=== PATIENT | male | born 1950 | race Caucasian/White ===

== ENCOUNTER 2016-08-02 09:43 | Emergency (ER) | payer BC ==
[2016-08-02 10:06] VITALS: BP 139/70
--- NOTE | 2016-08-02 10:18 | UC ---
Back Pain HPI - HPI Summary HPI Summary: right lower back pain x 10 days no known injury , no radiation of the pain - History of Current Complaint Chief Complaint: UCLowerExtremity Stated Complaint: LOWER BACK/BUTTOCK PAIN Time Seen by Provider: 08/02/16 09:55 Hx Obtained From: Patient Onset/Duration: Gradual Onset, Lasting Days - 10, Still Present Timing: Constant Severity Initially: Moderate Severity Currently: Moderate Back Pain: Is Discrete @ - right lower back Character: Aching, Spasmodic Aggravating: Movement, Bending, Walking Alleviating: Rest, Position Associated Signs And Symptoms: Negative: Swelling, Redness, Bruising, Fever, Weakness, Numbness, Tingling, Abdominal Pain, Flank Pain, Bladder Incontinence, Bowel Incontinence, Weight Loss, Pain with Weight Bearing - Allergies/Home Medications Allergies/Adverse Reactions: Allergies Allergy/AdvReac Type Severity Reaction Status Date / Time No Known Allergies Allergy Verified 08/02/16 09:52 Home Medications: Home Medications Ibuprofen TAB* [Advil TAB*] 800 mg PO Q6H PRN 08/02/16 [History Confirmed ] PMH/Surg Hx/FS Hx/Imm Hx Previously Healthy: Yes - Surgical History Surgical History: Yes Surgery Procedure, Year, and Place: [facility], HYDREOCELE, SPETMATOCELE. RIGHT SHOULDER, 2010, [facility] - Family History Known Family History: Negative: Diabetes - Social History Alcohol Use: None Substance Use Type: None Smoking Status (MU): Never Smoked Tobacco Have You Smoked in the Last Year: No Review of Systems Constitutional: Negative Skin: Negative Eyes: Negative ENT: Negative Respiratory: Negative Musculoskeletal: Other: - right lower back pian All Other Systems Reviewed And Are Negative: Yes Physical Exam Triage Information Reviewed: Yes Appearance: Well-Appearing, No Pain Distress, Well-Nourished Vital Signs: Initial Vital Signs Temp 98.8 F 08/02/16 09:55 Pulse 75 08/02/16 09:55 Resp 16 08/02/16 09:55 BP 139/70 08/02/16 09:55 Pulse Ox 98 08/02/16 09:55 Eye Exam: Normal Eyes: Positive: Conjunctiva Clear ENT: Positive: Normal ENT inspection, Hearing grossly normal, Pharynx normal Neck: Positive: Supple, Nontender, No Lymphadenopathy Respiratory: Positive: Chest non-tender, Lungs clear, Normal breath sounds Cardiovascular: Positive: RRR, No Murmur, Pulses Normal Abdominal Exam: Normal Musculoskeletal: Positive: Strength Intact, ROM Intact, No Edema, Other: - right lower back : no swelling, no tenderness, good ROM Skin Exam: Normal Back Pain Course/Dx - Differential Dx/Diagnosis Provider Diagnoses: lower back strain Discharge - Discharge Plan Condition: Stable Disposition: HOME Prescriptions: Cyclobenzaprine TAB* [Flexeril TAB*] 10 mg PO BID #20 tab Patient Education Materials: Low Back Strain (ED) Referrals: Donnie Meier MD [Primary Care Provider] - 7 Days
== END 2016-08-02 10:20 | disposition home or self-care (01) ==
LOC: UCCORT 09:43
DX: S39.012A Strain of muscle, fascia and tendon of lower back, initial encounter (principal); X58.XXXA Exposure to other specified factors, initial encounter; Y92.9 Unspecified place or not applicable
CPT/HCPCS: 99212; G0463

== ENCOUNTER 2017-05-23 11:53 | Emergency (ER) | payer BC ==
[2017-05-23 12:27] VITALS: BP 129/77
[2017-05-23] MEDS ORDERED: Ketorolac INJ* 60 MG/2 ML VIAL IM ONE (12:30)
[2017-05-23] MEDS ORDERED: Ondansetron ODT TAB* 4 MG PO ONE (12:38)
--- NOTE | 2017-05-23 13:22 | UC ---
Abdominal Pain Male HPI - HPI Summary HPI Summary: RLQ ABDOMINAL PAIN X 1 DAY THE PAIN IS SEVER, RADIATING TO HIS GROIN AREA + NAUSEA AND VOMITING - History of Current Complaint Chief Complaint: UCAbdominalPain Stated Complaint: ABDOMINAL PAIN Time Seen by Provider: 05/23/17 12:14 Hx Obtained From: Patient Onset/Duration: Sudden Onset, Lasting Days - 1, Still Present Timing: Constant Severity Initially: Severe Severity Currently: Severe Location: Discrete At: RLQ Radiates: Yes Radiates to: Inguinal Character: Colicy, Tearing Aggravating Factor(s): Nothing Alleviating Factor(s): Nothing Associated Signs And Symptoms: Positive: Nausea, Vomiting. Negative: Diaphoresis, Fever, Cough, Chest Pain, Back Pain, Constipation, Blood in Stool, Urinary Symptoms, Decreased Appetite, Diarrhea, Penile Discharge - Allergies/Home Medications Allergies/Adverse Reactions: Allergies Allergy/AdvReac Type Severity Reaction Status Date / Time No Known Allergies Allergy Verified 05/23/17 12:04 PMH/Surg Hx/FS Hx/Imm Hx - Additional Past Medical History Additional PMH: GOUT - Surgical History Surgical History: Yes Surgery Procedure, Year, and Place: [facility], HYDREOCELE, SPETMATOCELE. RIGHT SHOULDER, 2010, [facility] - Family History Known Family History: Negative: Diabetes - Social History Alcohol Use: None Substance Use Type: None Smoking Status (MU): Never Smoked Tobacco Have You Smoked in the Last Year: No - Immunization History Most Recent Influenza Vaccination: no Review of Systems Constitutional: Negative Skin: Negative Eyes: Negative ENT: Negative Respiratory: Negative Cardiovascular: Negative Gastrointestinal: Abdominal Pain, Vomiting, Nausea Is Patient Immunocompromised?: No All Other Systems Reviewed And Are Negative: Yes Physical Exam Triage Information Reviewed: Yes Appearance: Well-Nourished, Pain Distress Vital Signs: Initial Vital Signs Temp 97.9 F 05/23/17 12:05 Pulse 62 05/23/17 12:05 Resp 28 05/23/17 12:05 BP 129/77 05/23/17 12:05 Pulse Ox 100 05/23/17 12:05 Vital Signs Reviewed: Yes Eyes: Positive: Conjunctiva Clear ENT: Positive: Normal ENT inspection, Hearing grossly normal, Pharynx normal Neck: Positive: Supple, Nontender, No Lymphadenopathy Respiratory: Positive: Chest non-tender, Lungs clear, Normal breath sounds Cardiovascular: Positive: RRR, No Murmur, Pulses Normal Abdomen Description: Positive: Soft, Other: - RLQ TENDERNESS. Negative: CVA Tenderness (R), CVA Tenderness (L), Distended, Guarding Musculoskeletal Exam: Normal Musculoskeletal: Positive: Strength Intact, ROM Intact, No Edema Neurological: Positive: Alert Skin Exam: Normal Abd Pain Male Course/Dx - Differential Dx/Clinical Impression Provider Diagnoses: RENAL COLIC Discharge - Discharge Plan Condition: Stable Disposition: HOME Prescriptions: Ciprofloxacin TAB* [Cipro 500 MG TAB*] 500 mg PO BID #14 tab HYDROcodone/ACETAMIN 5-325 MG* [[place] 5-325 TAB*] 1 tab PO Q6H PRN #20 tab MDD 4 tabs PRN Reason: Pain Ondansetron [Zofran 8 MG Odt] 8 mg PO Q8H #9 tab Tamsulosin CAP* [Flomax CAP*] 0.4 mg PO DAILY #10 cap Patient Education Materials: Renal Colic (ED) Referrals: Donnie Meier MD [Primary Care Provider] - 5 Days
== END 2017-05-23 13:30 | disposition home or self-care (01) ==
LOC: UCCORT 11:53
DX: N23 Unspecified renal colic (principal)
CPT/HCPCS: 81003; 96372; 99212; A9270-GY; G0463; J1885

== ENCOUNTER 2017-08-23 08:18 | Emergency (ER) | payer BC ==
[2017-08-23 08:34] VITALS: BP 145/90
[2017-08-23] MEDS ORDERED: Docusate LIQ* 100 MG/10 ML UDC PO ONE (09:00)
--- NOTE | 2017-09-20 13:57 | UC ---
Ear Complaint HPI - HPI Summary HPI Summary: Pleasant 67 yo gentleman presents with c/o unable to hear out of L ear. Sx started yesterday s/p snowblow driveway. No pain. No recent illness. No fever / chills. No recent abx. Some hx hearing loss, details sketchy. - History of Current Complaint Chief Complaint: UCEar Stated Complaint: LEFT EAR COMPLAINT Time Seen by Provider: 08/23/17 08:27 Hx Obtained From: Patient Pain Intensity: 0 Pain Scale Used: 0-10 Numeric - Allergies/Home Medications Allergies/Adverse Reactions: Allergies Allergy/AdvReac Type Severity Reaction Status Date / Time No Known Allergies Allergy Verified 08/23/17 08:28 PMH/Surg Hx/FS Hx/Imm Hx Previously Healthy: Yes - Surgical History Surgical History: Yes Surgery Procedure, Year, and Place: [facility], HYDRE[place], SPERTMATOCELE. RIGHT SHOULDER, 2010, [facility] - Family History Known Family History: Negative: Diabetes - Social History Alcohol Use: Rare Substance Use Type: None Smoking Status (MU): Never Smoked Tobacco Have You Smoked in the Last Year: No - Immunization History Most Recent Influenza Vaccination: no Review of Systems Constitutional: Negative Skin: Negative Eyes: Negative ENT: Other - see hpi Respiratory: Negative Cardiovascular: Negative Gastrointestinal: Negative Genitourinary: Negative Motor: Negative Neurovascular: Negative Musculoskeletal: Negative Neurological: Negative Psychological: Negative Is Patient Immunocompromised?: No All Other Systems Reviewed And Are Negative: Yes Physical Exam Triage Information Reviewed: Yes Appearance: Well-Appearing, Well-Nourished Vital Signs: Initial Vital Signs Temp 99.4 F 08/23/17 08:30 Pulse 69 08/23/17 08:30 Resp 18 08/23/17 08:30 BP 145/90 08/23/17 08:30 Pulse Ox 98 08/23/17 08:30 Vital Signs Reviewed: Yes Eye Exam: Normal ENT Exam: Other - L TM dull, gonzalez, some cerumen in EAC R TM obscured d/t cerumen. Neck exam: Normal Neck: Positive: Supple, Nontender Respiratory Exam: Normal Respiratory: Positive: Chest non-tender, Lungs clear, Normal breath sounds, No respiratory distress Cardiovascular Exam: Normal Cardiovascular: Positive: RRR, No Murmur, Pulses Normal Abdominal Exam: Normal Abdomen Description: Positive: Nontender Musculoskeletal Exam: Normal Neurological Exam: Normal - normal (incl cn1 - alc swab) except hearing loss as above. Seems conductive. Psychological Exam: Normal - conversing easily and appropriately Skin Exam: Normal Ear Complaint Course/Dx - Course Course Of Treatment: EAC flushed by RN - cerumen removed. Can hear better. TM gonzalez. EAC a little excoriated but otherwise nad. - Differential Dx/Diagnosis Provider Diagnoses: Cerumen impaction L Discharge - Sign-Out/Discharge Documenting (check all that apply): Discharge - Discharge Plan Condition: Stable Disposition: HOME Patient Education Materials: Cerumen Impaction (ED) Referrals: Donnie Meier MD [Primary Care Provider] - Additional Instructions: Follow up with your primary care physician, per routine. Seek medical attention for worse or new problems. Consider audiology testing (referral can be placed by your pcp) - Billing Disposition and Condition Condition: STABLE Disposition: HOME
== END 2017-08-23 09:35 | disposition home or self-care (01) ==
LOC: UCCORT 08:18
DX: H61.22 Impacted cerumen, left ear (principal)
CPT/HCPCS: 99213; A9270-GY; G0463

== ENCOUNTER → 2018-09-04 11:51 | Emergency (ER) | payer BC ==
[~2018-09-04 11:51] MED LIST: Aspirin 81 mg CHEW TAB* 81 MG TAB.CHEW PO ONE; Nitroglycerin TAB 0.4 MG* 0.4 MG TAB SL ONE
--- NOTE | 2018-09-04 12:33 | ED ---
HPI Chest Pain - HPI Summary HPI Summary: Pt is a 68 y/o M presenting to the ED with a chief complaint of chest pain. In November of 2017, the pt was driving and he had a zing down his L arm that radiates to his L neck/L chest. He went to the [place] ER and they did not find anything. Every 2-3 months since then, he would have the same type of episode. He had one yesterday that was mild in severity, but this morning he felt the pain up and down his L chest and arm with associated generalized weakness. He reports not feeling right, and the pain is described as dull/ aching and rated at 0.5/10 with a shadow of the pain going down his L arm. He denies calf tenderness, sob, nausea, diaphoresis, hx of HTN, DM, HLD, smoking, drinking, or drug use. He takes allopurinol daily for gout. He was on Prilosec for GERD, and then he had an episode of the chest pain while he was on the Prilosec, so did not think the CP was from GERD. He has since been on ranitidine for GERD, and now has CP while on the ranitidine. His grandfather had ASHD. He sees Dr. Donnie Meier as his PCP, and Dr. Meier has been evaluating the chest pain with the pt. He has not had a recent stress test or seen a tobacco educator. 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 Home Medications Medication Instructions Recorded Confirmed Type Allopurinol TAB* [Zyloprim 100 MG 200 mg PO DAILY 09/03/13 09/04/18 History TAB*] - History of Current Complaint Chief Complaint: EDChestPainROMI Hx Obtained From: Patient, Family/General Assembler - Onset/Duration: Started Hours Ago, Atraumatic, Still Present Timing: Constant, Lasting Hours Initial Severity: Mild Current Severity: Mild Pain Intensity: 2 Pain Scale Used: 0-10 Numeric Chest Pain Location: Left Anterior Chest Pain Radiates: Yes Chest Pain Radiates To:: Shoulder, Arm, Jaw, Other - L arm Character: Other: - discomfort, "zing", left arm discomfort is like a "shadow" of discomfort. Aggravating Factor(s): Nothing Alleviating Factor(s): Nothing Associated Signs and Symptoms: Positive: Chest Pain, Weakness. Negative: Shortness of Breath, Diaphoresis, Nausea, Calf Pain/Swelling - Allergy/Home Medications Allergies/Adverse Reactions: Allergies Allergy/AdvReac Type Severity Reaction Status Date / Time No Known Allergies Allergy Verified 09/06/18 14:21 PMH/Surg Hx/FS Hx/Imm Hx Previously Healthy: No Endocrine/Hematology History: Reports: Hx Anemia - FOR MANY YEARS Cardiovascular History: Denies: Other Cardiovascular Problems/Disorders Respiratory History: Denies: Other Respiratory Problems/Disorders GI History: Reports: Hx Gastroesophageal Reflux Disease Denies: Other GI Disorders History: Reports: Hx Kidney Stones Musculoskeletal History: Reports: Hx Arthritis - VANDA THUMBS, Hx Gout Denies: Other Musculoskeletal History Sensory History: Reports: Hx Cataracts - VANDA, Hx Contacts or Glasses - CONTACTS Denies: Hx Hearing Aid Opthamlomology History: Reports: Hx Cataracts - VANDA, Hx Contacts or Glasses - CONTACTS Neurological History: Denies: Other Neuro Impairments/Disorders - Surgical History Surgery Procedure, Year, and Place: [facility]: HYDROCELE, SPERMATOCELE. [facility], [facility], [facility] [place]. appendectomy Hx Anesthesia Reactions: No Infectious Disease History: No Infectious Disease History: Denies: Traveled Outside the [place] in Last 30 Days - Family History Known Family History: Positive: Cardiac Disease - grandfather hx of ASHD Negative: Diabetes - Social History Occupation: Employed Full-time - psychologist Lives: With Family Alcohol Use: Rare Hx Substance Use: No Substance Use Type: Reports: None Hx Tobacco Use: No Smoking Status (MU): Never Smoked Tobacco Have You Smoked in the Last Year: No Review of Systems Positive: Other - weakness, doesn't feel right . Negative: Skin Diaphoresis Positive: Chest Pain Negative: Shortness Of Breath Gastrointestinal: Negative Negative: Nausea Positive: no symptoms reported Musculoskeletal: Negative Negative: Edema Skin: Negative Positive: Weakness Psychological: Normal All Other Systems Reviewed And Are Negative: Yes Physical Exam - Summary Physical Exam Summary: Appearance: Well-appearing, minimal pain distress, well-nourished Skin: Warm, color reflects adequate perfusion, dry, no rash Head: Normal Head/Face inspection, atraumatic Eyes: Conjunctiva clear ENT: Normal inspection Neck: Supple, no nodes, no JVD Respiratory: Lungs clear, normal breath sounds, no respiratory distress Cardio: RRR, No murmur, pulses normal, brisk capillary refill, no axillary, supraclavicular or cervical lymphadenopathy, chest pain is not reproducible Abdomen: Soft, nontender, nondistended, no masses Bowel sounds: Present Musculoskeletal: Strength Intact/ROM intact, no calf tenderness, no edema, left arm with full ROM, no deformity, no bony tenderness. Psychological: Normal Neuro: Alert, muscle tone normal, no focal deficit, facial symmetry, speech fluent and clear Triage Information Reviewed: Yes Vital Signs On Initial Exam: Initial Vitals Temp Pulse Resp BP Pulse Ox 96.2 F 74 18 137/100 99 09/04/18 11:55 09/04/18 11:55 09/04/18 11:55 09/04/18 11:55 09/04/18 11:55 Vital Signs Reviewed: Yes Diagnostics - Vital Signs Vital Signs Temp Pulse Resp BP Pulse Ox 09/04/18 11:55 96.2 F 74 18 137/100 99 - Laboratory Result Diagrams: 09/04/18 12:32 09/04/18 12:32 Lab Statement: Any lab studies that have been ordered have been reviewed, and results considered in the medical decision making process. - Radiology chest xray Radiology Interpretation Completed By: Radiologist Summary of Radiographic Findings: no active cardiopulmonary disease - EKG 1204 Cardiac Rate: NL - 66bpm EKG Rhythm: Sinus Rhythm ST Segment: Non-Specific Ectopy: None EKG Comparison: No Significant Change - from 08/21/13 Summary of EKG Findings: SR with nl AVIVCT, nl QTc, Left axis -15. No significant change from 08/21/13. Re-Evaluation - Re-Evaluation First Eval Re-Evaluation Time: 14:35 Change: Unchanged Comment: HR 60's, BP 140's. No increase in CP or arm pain (left). 2nd re-eval Re-Evaluation Time: 15:37 Change: Improved Comment: Pt has mild soreness from L chest down his L arm. He is lying comfortably. Discussed results with pt and his . Needs CXR. Will try one NTG 3rd re-eval Re-Evaluation Time: 16:59 Change: Unchanged Comment: Pt's minimal to no left chest discomfort (0.5 or less/10) and minimal left arm discomfort ("shadow") are unchanged with NTG. Pt is with and both are comfortable with DC. Chest Pain Course/Dx - Course Course Of Treatment: Pt is a 68 y/o M presenting to the ED with a chief complaint of chest pain. He had an initial episode in November of 2017 described as a "zing" through his L chest, arm, neck, and jaw. He has had episodes every 2-3 months since then, and he had a small one yesterday that did not bother him. Today, he had a worse episode with associated generalized weakness. The pain is rated at 0.5/10 in severity, and described as a dull/aching pain. He denies sob , nausea, calf tenderness, or diaphoresis. Nurses notes reviewed. Pts medications reviewed this visit. EKG shows NSR 66bpm with L axis deviation -15, but no acute changes from 11/21/13. Pts hematology results show Hgb at 13.1, MCV at 102, MCH at 34. His chemistry shows BUN at 28, BUN/creatinine ratio of 27.2, lactic acid of 0.9, troponin I of 0.01, and total protein of 6.3. Pt has mild soreness from L chest down his L arm. He is lying comfortably. Discussed results with pt and his . CXR shows no active cardiopulmonary disease. Second troponin is 0.01. Pt was given one NTG in the ED, which did not change his discomfort, did not give him a headache. Discussion with pt and his , that there appears to be no cardiac ischemia at this time, with this episode of chest discomfort. But that this does not mean he does not have coronary artery disease. Pt will need close follow up with Dr. Meier to determine what further work up is needed. Pt is advised to not exercise or do any strenuous activity until he sees Dr. Meier Pt and are advised that if pt has recurrent pain, that he needs to return to the ED. Pt and his voice understanding. - Chest Pain Differential Diagnosis/HQI/PQRI: Acute SC, ACS, Angina, GI Disease, Pulmonary Embolism - Diagnoses Provider Diagnoses: Chest pain Discharge - Sign-Out/Discharge Documenting (check all that apply): Patient Departure - home Patient Received Moderate/Deep Sedation with Procedure: No - Discharge Plan Condition: Stable Disposition: HOME Patient Education Materials: Chest Pain (ED) Referrals: Donnie Meier MD [Primary Care Provider] - As Soon As Possible Daniel Lancaster MD [Medical Doctor] - If Needed Additional Instructions: You have had two troponin levels that are normal (0.01, when abnormal is greater than 0.04). Your EKG also did not show any abnormalities. Your CXR was also normal. We have given you copies of the EKG and CXR and your labs will print out with these papers. We tried one nitroglycerin and it did not change your discomfort. This is not diagnostic, but it does not push us to further immediate observation. Dr. Encarnacion recommends that you should follow up with Dr. Meade as soon as possible, and bring these papers with you. Dr. Meade can determine what he thinks is the additional work up that should be done, if any. We have provided Dr. Lancaster's name, a tobacco educator affiliated with [facility], who does see outpatients in a [place] office. If Dr. Meade recommends a tobacco educator, you could consider Dr. Lancaster as one option for a tobacco educator. Be sure to ask for the [place] office, if you do call for an appointment with him. Please return to the ER if you have new or worsening symptoms. - Billing Disposition and Condition Condition: STABLE Disposition: Home - Attestation Statements Document Initiated by Gus: Yes Documenting Scribe: Kortney Betancourt Provider For Whom Gus is Documenting (Include Credential): Dr. Laura Encarnacion MD. Scribe Attestation: IKortney, scribed for Dr. Laura Encarnacion MD. on 09/07/18 at 0334. Scribe Documentation Reviewed: Yes Provider Attestation: The documentation as recorded by the Kortney abarca accurately reflects the service I personally performed and the decisions made by me, Dr. Laura Encarnacion MD. Status of Scribe Document: Viewed
[2018-09-04 12:43] LABS: ABS Basophils 0.1 10^3/ul (0-0.2); ABS Eosinophils 0.1 10^3/ul (0-0.6); ABS Lymphocytes 0.9 10^3/ul (1.0-4.8); ABS Monocytes 0.6 10^3/ul (0-0.8); ABS Neutrophils 4.2 10^3/ul (1.5-7.7); ABS Nucleated RBC 0 10^3/ul; Eosinophil % 1.8 %; Hematocrit 39 % (36-46); Hemoglobin 13.1 g/dL (14.0-18.0); Lymphocyte % 15.3 %; Mean Corpuscular HGB Conc 33 g/dL (31-36); Mean Corpuscular Hemoglobin 34 pg (27-31); Mean Corpuscular Volume 102 fL (80-94); Mean Platelet Volume 9.1 fL (7.4-10.4); Nucleated Red Blood Cells % 0.1; Platelet Count 187 10^3/uL (150-450); Red Blood Count 3.85 10^6 /uL (4.18-5.48); Red Cell Distribution Width 14 % (10.5-15); White Blood Count 5.8 10^3/uL (3.5-10.8)
[2018-09-04 13:03] LABS: Albumin 3.7 g/dL (3.2-5.2); Albumin/Globulin Ratio 1.4 (1-3); BUN/Creatinine Ratio 27.2 (8-20); Calcium 8.9 mg/dL (8.6-10.3); EGFR African American 86.6 (>60); EGFR Non-African American 71.6 (>60); Globulin 2.6 g/dL (2-4); Potassium 4.3 mmol/L (3.5-5.0); Total Bilirubin 0.5 mg/dL (0.2-1.0); Total Protein 6.3 g/dL (6.4-8.9)
[2018-09-04 13:04] LABS: Troponin I 0.01 ng/mL (<0.04)
[2018-09-04 17:07] VITALS: BP 136/87
== END | disposition home or self-care (01) ==
LOC: ED 11:51
DX: R07.9 Chest pain, unspecified (principal); R94.31 Abnormal electrocardiogram [ECG] [EKG]; M10.9 Gout, unspecified; D64.9 Anemia, unspecified; K21.9 Gastro-esophageal reflux disease without esophagitis; Z79.899 Other long term (current) drug therapy; M13.842 Other specified arthritis, left hand; M13.841 Other specified arthritis, right hand
CPT/HCPCS: 36415; 71045; 80053; 83605; 83735; 83880; 84484; 85025; 93005; 99283; A9270-GY

== ENCOUNTER 2018-09-06 14:10 | Observation (INO) | payer BC ==
--- NOTE | 2018-09-06 15:21 | ED ---
HPI Chest Pain - HPI Summary HPI Summary: This patient is a 68 year old M presenting to [facility] with a chief complaint of intense CP since this morning. The patient rates the pain 2/10 in severity. Symptoms aggravated by exercise. Patient reports weakness and vibrating in his arms. Patient denies fever or SOB. The patient was here two days ago for the same symptoms and was told to return if they returned. He usually likes to run for exercise, but walking earlier today made him extremely weak. This first happened 11/2017 at the [place] ED, where they didnt find anything wrong with him. The patient had a stress test a few years ago. The patient was supposed to fly to [place]. No PMHx anxiety. No SHx EtOH use, tobacco use. - History of Current Complaint Chief Complaint: EDChestPainROMI Time Seen by Provider: 09/06/18 15:12 Hx Obtained From: Patient Onset/Duration: Started Hours Ago Current Severity: Mild Pain Intensity: 2 Pain Scale Used: 0-10 Numeric Aggravating Factor(s): Exertion Associated Signs and Symptoms: Positive: Chest Pain, Tingling - arms. Negative : Shortness of Breath, Fever - Allergy/Home Medications Allergies/Adverse Reactions: Allergies Allergy/AdvReac Type Severity Reaction Status Date / Time No Known Allergies Allergy Verified 09/06/18 14:21 PMH/Surg Hx/FS Hx/Imm Hx Endocrine/Hematology History: Reports: Hx Anemia - FOR MANY YEARS Cardiovascular History: Denies: Other Cardiovascular Problems/Disorders Respiratory History: Denies: Other Respiratory Problems/Disorders GI History: Denies: Other GI Disorders Musculoskeletal History: Reports: Hx Arthritis - VANDA THUMBS, Hx Gout Denies: Other Musculoskeletal History Sensory History: Reports: Hx Cataracts - VANDA, Hx Contacts or Glasses - CONTACTS Denies: Hx Hearing Aid Opthamlomology History: Reports: Hx Cataracts - VANDA, Hx Contacts or Glasses - CONTACTS Neurological History: Denies: Other Neuro Impairments/Disorders Psychiatric History: Denies: Hx Anxiety - Surgical History Surgery Procedure, Year, and Place: [facility], HYDREOCELE, SPERTMATOCELE. RIGHT SHOULDER, 2010, [facility] Hx Anesthesia Reactions: No Infectious Disease History: No Infectious Disease History: Denies: Traveled Outside the [place] in Last 30 Days - Family History Known Family History: Positive: Cardiac Disease - grandfather hx of ASHD Negative: Diabetes - Social History Lives: With Family Alcohol Use: Rare Hx Substance Use: No Substance Use Type: Reports: None Hx Tobacco Use: No Smoking Status (MU): Never Smoked Tobacco Have You Smoked in the Last Year: No Review of Systems Negative: Fever Positive: Chest Pain Negative: Shortness Of Breath Neurological: Other - vibrating arms Positive: Weakness All Other Systems Reviewed And Are Negative: Yes Physical Exam - Summary Physical Exam Summary: Appearance: Well appearing, no pain distress Skin: warm, dry, reflects adequate perfusion Head/face: normal Eyes: EOMI, CUAUHTEMOC ENT: normal Neck: supple, non-tender Respiratory: CTA, breath sounds present Cardiovascular: RRR, pulses symmetrical Abdomen: non-tender, soft Musculoskeletal: normal, strength/ROM intact Neuro: normal, sensory motor intact, A&Ox3 Triage Information Reviewed: Yes Vital Signs On Initial Exam: Initial Vitals Temp Pulse Resp BP Pulse Ox 99 F 99 18 134/92 98 09/06/18 14:18 09/06/18 14:18 09/06/18 14:18 09/06/18 14:18 09/06/18 14:18 Vital Signs Reviewed: Yes Diagnostics - Vital Signs Vital Signs Temp Pulse Resp BP Pulse Ox 09/06/18 14:18 99 F 99 18 134/92 98 - Laboratory Result Diagrams: 09/06/18 15:53 09/06/18 15:53 Lab Statement: Any lab studies that have been ordered have been reviewed, and results considered in the medical decision making process. - Radiology CXR Radiology Interpretation Completed By: Radiologist Summary of Radiographic Findings: No evidence for acute intrathoracic disease. ED physician has reviewed this report. - EKG 14:26 Cardiac Rate: NL - 76 bpm EKG Rhythm: Sinus Rhythm Summary of EKG Findings: No acute changes Chest Pain Course/Dx - Course Course Of Treatment: This patient is a 68 year old M presenting to [facility] with a chief complaint of intense CP since this morning. The patient rates the pain 2/ 10 in severity. Symptoms aggravated by exercise. Patient reports weakness and vibrating in his arms. Patient denies fever or SOB. An EKG reveals NSR 76 bpm, no acute changes. CXR reveals, per radiologist, No evidence for acute intrathoracic disease. Rule out TX. Bloodwork/UA obtained. In the ED course the patient was given Famotidine. We discussed patient care with Dr. Corral, hospitalist, and they recommended admission. - Chest Pain Differential Diagnosis/HQI/PQRI: Acute TX, Angina, Chest Wall, Lower Respiratory Infection - Diagnoses Provider Diagnoses: Chest pain, rule out acute myocardial infarction - Provider Notifications Discussed Care Of Patient With: Manas Corral Time Discussed With Above Provider: 16:38 Instructed by Provider To: Admit As Inpatient Discharge - Sign-Out/Discharge Documenting (check all that apply): Patient Departure - admission Patient Received Moderate/Deep Sedation with Procedure: No - Discharge Plan Condition: Fair Disposition: ADMITTED TO [facility] Referrals: Donnie Meier MD [Primary Care Provider] - - Billing Disposition and Condition Condition: FAIR Disposition: Admitted to [facility] - Attestation Statements Document Initiated by Daisyibe: Yes Documenting Scribe: Nicolas Armas Provider For Whom Scribe is Documenting (Include Credential): Ahsan Piper MD Scribe Attestation: Nicolas Hokos, daisyibed for Ahsan Piper MD on 09/06/18 at 1835. Scribe Documentation Reviewed: Yes Provider Attestation: The documentation as recorded by the Nicolas aabrca accurately reflects the service I personally performed and the decisions made by , Ahsan Piper MD Status of Scribe Document: Viewed
[2018-09-06 16:03] LABS: ABS Basophils 0.1 10^3/ul (0-0.2); ABS Eosinophils 0.1 10^3/ul (0-0.6); ABS Monocytes 0.7 10^3/ul (0-0.8); ABS Neutrophils 4.9 10^3/ul (1.5-7.7); ABS Nucleated RBC 0 10^3/ul; Eosinophil % 2.1 %; Hematocrit 40 % (36-46); Hemoglobin 13.3 g/dL (14.0-18.0); Lymphocyte % 14.4 %; Mean Corpuscular HGB Conc 34 g/dL (31-36); Mean Corpuscular Hemoglobin 34 pg (27-31); Mean Corpuscular Volume 101 fL (80-94); Nucleated Red Blood Cells % 0; Platelet Count 196 10^3/uL (150-450); Red Blood Count 3.95 10^6 /uL (4.18-5.48); Red Cell Distribution Width 14 % (10.5-15); White Blood Count 6.9 10^3/uL (3.5-10.8)
[2018-09-06 16:28] LABS: Albumin 3.9 g/dL (3.2-5.2); Albumin/Globulin Ratio 1.4 (1-3); BUN/Creatinine Ratio 27.7 (8-20); Calcium 9.6 mg/dL (8.6-10.3); EGFR African American 88.6 (>60); EGFR Non-African American 73.2 (>60); Globulin 2.8 g/dL (2-4); Potassium 4.4 mmol/L (3.5-5.0); Total Bilirubin 0.4 mg/dL (0.2-1.0); Total Protein 6.7 g/dL (6.4-8.9)
[2018-09-06 16:29] LABS: Troponin I 0.01 ng/mL (<0.04)
[2018-09-06] MEDS ORDERED: Famotidine TAB* 20 MG PO ONE (16:37)
[2018-09-06 16:48] LABS: TSH (Thyroid Stimulating Horm) 3.23 mcIU/mL (0.34-5.60)
[2018-09-06] MEDS ORDERED: Al Hydrox/Mg Hydrox/Simet LIQ* 30 ML UDC PO PRN (18:28)
[2018-09-06] MEDS ORDERED: Acetaminophen TAB* 325 MG PO PRN (18:28)
[2018-09-06] MEDS ORDERED: Aspirin 81 mg CHEW TAB* 81 MG TAB.CHEW PO ONE (18:53)
[2018-09-06] MEDS: Enoxaparin(*) 40 MG/0.4 ML SYR SUBCUT SCH (20:43)
--- NOTE | 2018-09-06 22:13 | HP ---
CC: Dr. Meier * HISTORY AND PHYSICAL: DATE OF ADMISSION: 09/06/18 PROVIDER: Ryanne Rubio NP PRIMARY CARE PROVIDER: Dr. Meier. ATTENDING PHYSICIAN WHILE IN THE HOSPITAL: Dr. Lloyd Van * (dictated by Ryanne Rubio NP). CHIEF COMPLAINT: Chest pain. HISTORY OF PRESENT ILLNESS: Mr. Andino is a 68-year-old male with a past medical history significant for gout and GERD, who reports that he started having intermittent episodes of electrical shooting pain across his chest that radiated to bilateral arms that started last November. He states that these episodes last less than 1 minute and are not provoked with exercise or exertion. He reports that they come intermittently and that since November, they have progressively gotten more frequent. He has been following with his primary care provider, Dr. Meier, who has worked him up for GI related issues. He reports that his primary care provider does not feel this is related to acid reflux, as he reports he was taking Prilosec and had a similar spell of electrical feeling across the chest, radiating to bilateral arms, again not associated with exertion. He reports that he has recently been receiving physical therapy for his back pain and has been feeling quite well. He reports on Saturday he ran on the treadmill approximately 2 miles and had no issues. No chest pain, shortness of breath or diaphoresis. He reports he had an episode on and presented to the emergency room where he had again the shooting electric-type pain across his chest, radiating to bilateral arms, lasting 30 seconds to a minute. He had routine blood work drawn in the emergency room. His troponins were negative. They tried a dose of nitroglycerin with no relief. The patient was discharged home. He reports today he was walking. He walked about a half a mile. He reports he is walking up a hill. He said on the way up a hill, he felt so weak that he had to sit down. Again, today's presenting symptoms was generalized weakness after walking up a hill. Due to this concern, he presented to the emergency room. The patient denies any fever or chills. Does not complain of chest tightness or pressure. He denies any diaphoresis, nausea, vomiting, diarrhea or abdominal pain. He denies any cough , hemoptysis or shortness of breath. Denies any palpitations with these episodes. Denies any gross hematuria, dysuria or focal weakness or sensory loss. Denies any dysphagia, arthralgias, myalgias, rashes, lesions or open sores. Denies any psychosis or anxiety. He denied any weakness on just one side. He reports that his generalized weakness resolved with rest. Given his symptoms, we were asked to see and evaluate him for admission. PAST MEDICAL HISTORY: Significant for: 1. Gout. 2. GERD. 3. History of kidney stones. PAST SURGICAL HISTORY: 1. Appendectomy. 2. Hydrocele surgery. MEDICATIONS: Home medications include: 1. 150 mg. 2. Allopurinol 300 mg p.o. daily. ALLERGIES: No known drug allergies. FAMILY HISTORY: Grandfather had a history of stroke in his 70s. No reported history of diabetes. Mother with breast cancer. SOCIAL HISTORY: Denies any tobacco, alcohol or illicit drug use. He is . He lives with his . Surrogate decision maker in the event he is unable to make his own decisions is his . He is a full code. REVIEW OF SYSTEMS: A review of 14 systems was completed. All pertinent positives were mentioned in the HPI, otherwise were negative. PHYSICAL EXAMINATION GENERAL: The patient is alert and oriented, sitting on the stretcher in the emergency room. He is in no acute distress. VITAL SIGNS: Blood pressure 128/82, heart rate 74, respirations , temperature was 99.0. HEENT: Head is atraumatic, normocephalic. Eyes: EOMs are intact. Sclerae anicteric and not pale. Oral mucosa appeared to be moist. NECK: Supple. LUNGS: Clear to auscultation bilaterally. No wheezes, rales or rhonchi. CARDIAC: S1, S2. Regular rate and rhythm. No murmurs, rubs or gallops. ABDOMEN: Soft and nontender. Bowel sounds are present x4. EXTREMITIES: He is able to move all 4 extremities with 5/5 strength. NEUROLOGIC: He is awake, alert, oriented x3. Speech is clear. Thought process is intact. There is no gross focal deficits. SKIN: Intact. DIAGNOSTIC STUDIES/LAB DATA: WBCs were 6.9, RBCs 3.95, hemoglobin 13.3, hematocrit is 40, platelet count was 196. Sodium 138, potassium 4.4, chloride 105, carbon dioxide was 26, anion gap was 7, BUN was 28, creatinine 1.01, glucose was 97, calcium 9.6, magnesium 2.0. ASTs were 23, ALTs were 15, alkaline phosphatase was 110. Troponin 0.01. BNP was 18. TSH was 123. Chest x-ray showed no acute disease. Electrocardiogram showed sinus rhythm at a rate of 76. No ST elevations or depressions noted. ASSESSMENT AND PLAN: Mr. Andino is a 68-year-old male with a past medical history significant for gout and gastroesophageal reflux disease, who presented to the emergency room with complaints of weakness, upper chest discomfort as he describes it as a zapping pain radiating to bilateral arms. This is his second presentation to the emergency room and he was presented as well on . Due to his continued symptoms of chest discomfort, we were asked to see and evaluate him for admission. He will be admitted under observation for: 1. Chest discomfort, atypical chest pain. I will place him on telemetry. We will get a transthoracic echocardiogram in the a.m. I will get a nuclear stress test on Saturday. We will continue to trend his troponins. I will get a lipid profile. I will start him on aspirin 81 mg p.o. daily and will add statin therapy if needed based on cholesterol profile. The patient does have a BLANCA score of 2 giving him an 8% risk at 14 days of all cause mortality of new or recurrent myocardial infarction or severe recurrent ischemia requiring urgent revascularization. He will do an exercise nuclear stress test on Saturday. 2. Gout. He will continue on allopurinol as previously prescribed. 3. Acid reflux. I will place him on omeprazole 20 mg p.o. daily. 4. Fluids, electrolytes, and nutrition. He can have a heart-heathy, no caffeine diet. 5. Code status: Full code. 6. DVT prophylaxis: I will place him on Lovenox 40 mg subcu daily. TIME SPENT: Time spent on this admission was 60 minutes, greater than half the time was spent at the bedside reviewing events leading thus far to his hospitalization, performing my physical exam, and implementing my plan of care. I have discussed this with my attending, Dr. Lloyd Van, he is in agreement with my plan. RYANNE RUBIO, BACK UP MACHINE OPERATOR [id number]/[facility] #: [id number] DYANA
[2018-09-07] MEDS: Pantoprazole TAB * 40 MG TAB PO SCH (05:36)
[2018-09-07 07:14] LABS: HDL Cholesterol 74.5 mg/dL
[2018-09-07] MEDS: Aspirin EC TAB* 81 MG TAB.EC PO SCH (09:19)
--- NOTE | 2018-09-07 12:39 | PN ---
Subjective Date of Service: 09/07/18 Interval History: Pt states that he has had intermittent chest "tightness" or "weakness" since November. States feeling radiates down both arms and that this has occurred appx 5 times since November. States he started to work out Tu, ran appx 2 miles with no symptoms. Yesterday he went for a walk and feeling came back, causing him to have to sit and rest to make feeling subside. Pt states that he has not had feeling since admission. He has been monitored on tele, which has shown NSR. Objective Active Medications: Acetaminophen (Tylenol Tab*) 650 mg PO Q4H PRN Al Hydrox/Mg Hydrox/Simethicone (Maalox Plus*) 30 ml PO Q6H PRN Aspirin (Aspirin Ec Tab*) 81 mg PO DAILY DEREK Enoxaparin Sodium (Lovenox(*)) 40 mg SUBCUT Q24H DEREK Pantoprazole Sodium (Protonix Tab*) 40 mg PO DAILY@0600 DEREK Vital Signs: Temp Pulse Resp BP Pulse Ox 98.1 F 66 16 135/54 100 09/07/18 15:45 09/07/18 15:45 09/07/18 15:45 09/07/18 15:45 09/07/18 15:45 Oxygen Devices in Use Now: None Appearance: Pt is sitting in bed reading. He appears well and in no acute distress. Eyes: No Scleral Icterus, PERRLA Ears/Nose/Mouth/Throat: NL Teeth, Lips, Gums, Clear Oropharnyx, Mucous Membranes Moist Neck: NL Appearance and Movements; NL JVP, Trachea Midline Respiratory: Symmetrical Chest Expansion and Respiratory Effort, Clear to Auscultation Cardiovascular: NL Sounds; No Murmurs; No JVD, RRR, No Edema, - - Tele: NSR Abdominal: NL Sounds; No Tenderness; No Distention, No Hepatosplenomegaly Extremities: No Edema, No Clubbing, Cyanosis Neurological: Alert and Oriented x 3 Result Diagrams: 09/06/18 15:53 09/06/18 15:53 Assess/Plan/Problems-Billing Assessment: Pt is a 68 yom with PMHx Gout, GERD who presents with chest tightness/weakness. - Patient Problems (1) Chest pain Comment: -Troponins negative x3, LDL 98 -Awaiting Echo and stress test -Continue asa (2) GERD (gastroesophageal reflux disease) Comment: -Cont pantoprazole, famotidine (3) DVT prophylaxis Comment: -Lovenox (4) Full code status Status and Disposition: Observation. Discharge after ECHO, Stress test
[2018-09-07] MEDS: Enoxaparin(*) 40 MG/0.4 ML SYR SUBCUT SCH (18:54)
[2018-09-08] MEDS: Pantoprazole TAB * 40 MG TAB PO SCH (05:48)
[2018-09-08 06:42] LABS: Hematocrit 39 % (36-46); Hemoglobin 13.1 g/dL (14.0-18.0); Mean Corpuscular HGB Conc 34 g/dL (31-36); Mean Corpuscular Hemoglobin 34 pg (27-31); Mean Corpuscular Volume 102 fL (80-94); Mean Platelet Volume 9.3 fL (7.4-10.4); Platelet Count 178 10^3/uL (150-450); Red Blood Count 3.83 10^6 /uL (4.18-5.48); Red Cell Distribution Width 14 % (10.5-15); White Blood Count 5.9 10^3/uL (3.5-10.8)
[2018-09-08 06:55] LABS: BUN/Creatinine Ratio 23.3 (8-20); EGFR African American 86.6 (>60); EGFR Non-African American 71.6 (>60); Potassium 4.5 mmol/L (3.5-5.0)
[2018-09-08] MEDS: Aspirin EC TAB* 81 MG TAB.EC PO SCH (09:21)
--- NOTE | 2018-09-08 13:44 | ECHO ---
Patient: GLORIA GIBSON [facility] Rec#: [id number] : 1950 Date: 09/08/2018 Age: 68y Height: 185 cm / 72.8 in Weight: 86 kg / 189.5 lbs Sex: M BSA: 2.1 Room#: [facility] Admit Date#: 09/06/2018 Type: Inpatient Referring: Ryanne Rubio Reading: Matt Carpenter MD Garment Manufacturing Supervisor: Norma Perez RDCS CC: Donnie Meier MD Transthoracic Echocardiogram Indication: Chest pain BP: 135/85 HR: 58 Rhythm: Bradycardia Findings History: Gout, GERD. Technical Comments: The study quality is fair. Completed at 0945. Left Ventricle: The left ventricular chamber size is normal. Mild concentric left ventricular hypertrophy is observed. There is a prominent septal knuckle. Left ventricular systolic function is at the lower limits of normal. The estimated ejection fraction is 50-55%. Abnormal left ventricular diastolic function is observed. Abnormal left ventricular diastolic filling is observed, consistent with impaired relaxation. Left Atrium: The left atrium is mildly dilated. Right Ventricle: Moderator Band present. The right ventricle is moderately dilated. The right ventricular global systolic function is normal. Right Atrium: The right atrium is moderately dilated. Aortic Valve: The aortic valve is trileaflet. The aortic valve leaflets are moderately thickened. There is a trace of aortic regurgitation. There is no evidence of aortic stenosis. Mitral Valve: The mitral valve leaflets are mildly thickened. There is mild mitral regurgitation. There is no evidence of mitral stenosis. Tricuspid Valve: There is trace to mild tricuspid regurgitation. The right ventricular systolic pressure is estimated at 22 mmHg. There is no tricuspid stenosis. Pulmonic Valve: The pulmonic valve appears normal. There is trace to mild pulmonic regurgitation. There is no pulmonic stenosis. Pericardium: There is no significant pericardial effusion. Aorta: There is mild dilatation of the ascending aorta. There is no dilatation of the aortic arch. There is mild dilatation of the aortic root. Pulmonary Artery: The main pulmonary artery appears normal. Venous: The inferior vena cava appears normal in size. There is an approximate 50% respiratory change in the inferior vena cava dimension. Summary: There was not any prior study for comparison. Conclusions There is a prominent septal knuckle. Left ventricular systolic function is at the lower limits of normal. The estimated ejection fraction is 50-55%. Abnormal left ventricular diastolic function is observed. The aortic valve leaflets are moderately thickened. There is no evidence of aortic stenosis. There is a trace of aortic regurgitation. The mitral valve leaflets are mildly thickened. There is mild mitral regurgitation. There is trace to mild tricuspid regurgitation. The right ventricular systolic pressure is estimated at 22 mmHg. There is mild dilatation of the ascending aorta. There is no significant pericardial effusion. Measurements Name Value Normal Range RVIDd (AP) 2D 2.9 cm (0.9 - 2.6) RVDdMajor (2D) 5.9 cm (2.2 - 4.4) RAd ISD 4CH 5.8 cm (3.4 - 4.9) RA (A4C)W 4.6 cm (2.9 - 4.6) IVSd (2D) 1.2 cm (0.6 - 1) LVPWd (2D) 1.1 cm (0.6 - 1) LVIDd (2D) 3.6 cm (3.6 - 5.4) LVIDs (2D) 2.8 cm - LV FS (2D) 22 % (25 - 45) Aortic Annulus 2.2 cm (1.4 - 2.6) Ao root diameter (2D) 4 cm (2.1 - 3.5) Ascending Ao 4.1 cm (2.1 - 3.4) Aortic arch 2.5 cm (1.8 - 3.4) LA dimension (AP) 2D 3.2 cm (2.3 - 3.8) LAd ISD 4CH 5.9 cm (2.9 - 5.3) LA ISD 4CH W 3.7 cm (2.5 - 4.5) Name Value Normal Range LA ESV BP (A/L) index 24 ml/m2 - Name Value Normal Range MV E-wave Vmax 0.5 m/sec - MV deceleration time 317 msec - MV A-wave Vmax 0.8 m/sec - MV E:A ratio 0.6 ratio - LV septal e' Vmax 0.04 m/sec - LV lateral e' Vmax 0.06 m/sec - LV E:e' septal ratio 12.5 ratio - LV E:e' lateral ratio 8.3 ratio - Name Value Normal Range TR Vmax 2.2 m/sec - TR peak gradient 19 mmHg - RAP 3 mmHg - RVSP 22 mmHg - IVC diameter 2.1 cm - Name Value Normal Range PV Vmax 0.7 m/sec - PV peak gradient 2 mmHg - GA end-diastolic Vmax 1.2 m/sec - PA end-diastolic pressur5 mmHg -
[2018-09-08 14:09] VITALS: BP 140/95
--- NOTE | 2018-09-09 03:18 | DS ---
CC: Dr. Donnie Meier * DISCHARGE SUMMARY: DATE OF ADMISSION: 09/06/18 DATE OF DISCHARGE: 09/08/18 PRIMARY CARE PROVIDER: Dr. Donnie Meier. ATTENDING PHYSICIAN: Dr. Jocelyne Martinez * (dictated by Jamaica Carlisle NP) PRIMARY DIAGNOSIS: Chest pain. SECONDARY DIAGNOSES: 1. Gout. 2. Acid reflux. HISTORY OF PRESENT ILLNESS/HOSPITAL COURSE: Mr. Andino is a 68-year-old male with a past medical history significant for gout and GERD, who presented to the emergency room on 09/06/18 with reports of intermittent episodes of electric shooting pain across his chest that would radiate to bilateral arms that started last November. For further details, please see history and physical dictated by Ryanne Rubio NP for details of events leading up to the patient 's presentation to the emergency room, but in short, the patient has been dealing with these electric shooting pains across the chest since last November. He has had a workup with his primary care provider including ruling out GI related issues. He reports he was in his normal state of health until 09/06/18 when he was out for a walk and started to feel weak, so he had to sit down. Given his weakness in conjunction with his intermittent electrical-type chest pain, the patient presented to the emergency room for further evaluation. It should be noted that the patient's presentation on 09/06/18 was his second presentation to the emergency room for similar symptoms. Given his presentation and continued symptoms, the patient was admitted to telemetry for further evaluation. While admitted on tele, the patient had repeat troponins all of which were 0.01. In addition, the patient had an echocardiogram, which was unremarkable. The patient had a stress test, which revealed low-risk nuclear and low-risk EKG. The patient remained on tele and with sinus rhythm. The patient remained symptom free while admitted. The patient is stable for discharge home today. PHYSICAL EXAMINATION: Vital Signs: Temp 98.1, HR 63, RR 17, O2 saturation 100 % on room air, BP 140/95. General: Mr. Andino is a 68-year-old male who is sitting in the chair, appears in no acute distress, appears stated age. HEENT: EOMs intact. PERRLA. Oral mucosa is moist without lesion. Posterior oropharynx is clear. Neck: Supple. No lymphadenopathy. Respiratory: Lungs are clear to auscultation. Good aeration. no wheezes, rhonchi, or rubs. Cardiac: S1 and S2 present. No murmurs, rubs, or gallops. Regular rate and rhythm. Abdomen: Soft, nontender. Bowel sounds x4. Extremities: No edema. No clubbing or cyanosis. No pain or deformities. Skin: Grossly intact. Neuro : Neuro exam was grossly intact with no focal deficits or weakness. LABORATORY DATA: WBC 5.9, hemoglobin 13.1, hematocrit 39, platelets 178. Sodium 137, potassium 4.5, chloride 107, BUN 24, creatinine 1.03. Triglycerides 34, chloride 179, LDL 98, HDL 74.5, TSH 3.23. Transthoracic echo: Impression: Prominent septal knuckle. Left ventricular systolic function is at the lower limits of normal. Estimated ejection fraction is 50% to 55%. Abnormal left ventricular diastolic dysfunction is observed. The aortic valve leaflets are moderately thickened. No evidence of aortic stenosis. There is trace aortic regurgitation. Mitral valve leaflets are mildly thickened. There is mild mitral regurgitation. [id number] tricuspid regurgitation. Right ventricular systolic pressure is estimated at 22 mmHg. Mild dilatation of the ascending aorta. No significant pericardial effusion. Chest x-ray: Impression: No evidence for acute intrathoracic disease. EKG: Impression: Sinus kenyon. DISCHARGE PLAN/FOLLOWUP: 1. Chest pain: As mentioned above, the patient had repeat troponins, nuclear stress test, echo, and EKG, which were all within normal limits. The patient was started on aspirin 81 mg, which he is to continue until otherwise instructed. The patient was educated that no tests . Therefore, if he has reoccurrence of symptoms or any new or worsening symptoms, he should return to the emergency department. The patient states understanding. In addition, the patient had lipids as mentioned above. Given his ACVD risk factor of 15.4% , the patient was started on low-dose atorvastatin. The patient was encouraged to follow up with his primary care for repeat lipids and liver function tests in 4 to 6 weeks. 2. Gout: The patient should follow up with his primary care as needed. 3. Gastroesophageal reflux disease: The patient should continue his home medications as previously prescribed. Follow up with primary care as needed. 4. Septal knuckle: The patient was educated on the septal knuckle finding on his echo. The patient should follow up with his primary care regarding whether or not he needs a referal to Cardiology. The patient is asymptomatic as he has no episodes of syncope. 5. Education: The patient was educated on sings and symptoms of new and worsening condition and when to return to the emergency department. 6. Followup: The patient will arrange followup with his primary care in 1 to 2 weeks. TIME SPENT: Approximately 35 minutes was spent on this discharge, greater than half the time was spent [id number] with the patient discussing discharge plan and instructions. This plan was discussed with my attending Dr. Martinez, who agrees with my plan. JAMAICA CARLISLE, DEMETRIS [id number]/[facility] #: [id number] DYANA
== END 2018-09-08 16:30 | disposition home or self-care (01) ==
LOC: ED 14:10 → MEDTELE 18:28
PROVIDERS: ADMIT Student in an Organized Health Care Education/Training Program; ATTEND Internal Medicine
DX: R07.9 Chest pain, unspecified (principal); M10.9 Gout, unspecified; K21.9 Gastro-esophageal reflux disease without esophagitis; Z79.82 Long term (current) use of aspirin; R20.2 Paresthesia of skin; R53.1 Weakness; Z87.442 Personal history of urinary calculi; Z90.89 Acquired absence of other organs
CPT/HCPCS: 36415; 71045; 78452; 80048; 80053; 80061; 83735; 83880; 84443; 84484; 85025; 85027; 93005; 93017; 93306; 99284; A9270-GY; A9502; J1650